=== PATIENT | female | born 1965 | race Caucasian/White ===

== ENCOUNTER → 2024-02-08 07:12 | Outpatient (REF) | payer OTHER, SELFPAY | LOC: PAVMRI 07:12 | PROVIDERS: ATTENDING PHYSICIAN Family Medicine | DX: M48.00 Spinal stenosis, site unspecified (principal); M54.50 Low back pain, unspecified | CPT/HCPCS: 72148 ==

== ENCOUNTER → 2024-11-12 13:50 | Outpatient (REF) | payer OTHER, SELFPAY | LOC: HWRAD 13:50 | PROVIDERS: ATTENDING PHYSICIAN Internal Medicine Critical Care Medicine; FAMILY PHYSICIAN Family Medicine | DX: R93.89 Abnormal findings on diagnostic imaging of other specified body structures (principal); Z80.1 Family history of malignant neoplasm of trachea, bronchus and lung | CPT/HCPCS: 71250 ==

== ENCOUNTER → 2025-02-19 07:00 | Outpatient (REF) | payer OTHER, SELFPAY | LOC: WDC 07:00 | PROVIDERS: ATTENDING PHYSICIAN Family Medicine | DX: Z12.31 Encounter for screening mammogram for malignant neoplasm of breast (principal) | CPT/HCPCS: 77063; 77067 ==

== ENCOUNTER → 2025-04-26 08:06 | Outpatient (REF) | payer OTHER, SELFPAY | LOC: HWRAD 08:06 | PROVIDERS: ATTENDING PHYSICIAN Internal Medicine Critical Care Medicine; FAMILY PHYSICIAN Family Medicine | DX: R91.1 Solitary pulmonary nodule (principal) | CPT/HCPCS: 71250 ==